=== PATIENT | male | born 1950 | race Caucasian/White ===

== ENCOUNTER 2016-09-10 07:03 | Day surgery (SDC) | payer MEDICARE, BC ==
[~2016-09-10 07:03] MED LIST: RINGERS SOLUTION,LACTATED 1,000 ML IV PRN; ceFAZolin SODIUM 1 GM VIAL IV PRN
[2016-09-10] MEDS ORDERED: RINGERS SOLUTION,LACTATED 1,000 ML IV ONE (07:33)
[2016-09-10] MEDS ORDERED: BUPIVACAINE HCL 50 ML VIAL IJ ONE (08:20)
[2016-09-10 09:45] VITALS: BP 109/64
== END 2016-09-10 07:04 | disposition home or self-care (01) ==
LOC: AMB 07:03
PROVIDERS: ATTEND Orthopaedic Surgery
PROC: 0LBV0ZZ Excision of Right Foot Tendon, Open Approach (ICD-10-PCS; principal; 2016-09-10 08:00)
PROC: 0XBK0ZX Excision of Left Hand, Open Approach, Diagnostic (ICD-10-PCS; 2016-09-10 08:00)
DX: M67.471 Ganglion, right ankle and foot (principal); D36.12 Benign neoplasm of peripheral nerves and autonomic nervous system, upper limb, including shoulder; E11.9 Type 2 diabetes mellitus without complications; Z68.32 Body mass index [BMI] 32.0-32.9, adult